=== PATIENT | female | born 1965 | race African-American/Black ===

== ENCOUNTER 2016-04-21 07:55 | Observation (INO) | payer SELFPAY ==
[2016-04-21 08:01] VITALS: BP 152/83; PULSE 72; RESP 15; TEMP 98.6; O2SAT 99
--- NOTE | 2016-04-21 08:23 | PD ---
HPI Chief Complaint: Chest Pain Time Seen by Provider: 08:15 Travel History International Travel<30 days: No Contact w/Intl Traveler<30days: No Traveled to known affect area: No History of Present Illness HPI The patient was seen and examined in the presence of the nurse. This patient complains of chest pressure. Started 11 PM last night, it's been constant for 9 hours since that time. Feels like a pressure and heaviness. Location is upper central sternum. She has no diagnosed cardiac problems. She does have anxiety issues. Severity of symptoms is moderate. No alleviating factors. Symptoms are nonexertional PFSH Social History Alcohol Use: No Tobacco Use: No Substance Use: No Allergies-Medications (Allergen,Severity, Reaction): Coded Allergies: No Known Allergies (Unverified , 04/21/16) Reported Meds & Prescriptions Reported Meds & Active Scripts Active Reported Trazodone (Trazodone HCl) 100 Mg Tab 100 Mg PO HS Linzess (Linaclotide) 290 Mcg Cap 290 Mcg PO DAILY Ativan (Lorazepam) 1 Mg Tab 1 Mg PO TID PRN Topamax (Topiramate) 100 Mg Tab 100 Mg PO BID Ambien (Zolpidem Tartrate) 10 Mg Tab 10 Mg PO HS PRN Review of Systems General / Constitutional: No: Fever Eyes: No: Visual changes HENT: No: Headaches Cardiovascular: Positive: Chest Pain or Discomfort Respiratory: No: Shortness of Breath Gastrointestinal: No: Abdominal Pain Genitourinary: No: Dysuria Musculoskeletal: No: Pain Skin: No Rash Neurologic: No: Weakness Psychiatric: Positive: Anxiety, No: Depression Endocrine: No: Polydipsia Hematologic/Lymphatic: No: Easy Bruising Physical Exam Narrative GENERAL: Well-nourished, well-developed patient in no apparent distress. SKIN: Warm and dry. HEAD: Atraumatic. Normocephalic. EYES: Pupils equal and round. No scleral icterus. No injection or drainage. ENT: No nasal bleeding or discharge. Mucous membranes pink and moist. NECK: Trachea midline. No JVD. CARDIOVASCULAR: Regular rate and rhythm. No murmur appreciated. RESPIRATORY: No accessory muscle use. Clear to auscultation. Breath sounds equal bilaterally. GASTROINTESTINAL: Abdomen soft, non-tender, nondistended. Hepatic and splenic margins not palpable. MUSCULOSKELETAL: No obvious deformities. No clubbing. No cyanosis. No edema. NEUROLOGICAL: Awake and alert. No obvious cranial nerve deficits. Motor grossly within normal limits. Normal speech. PSYCHIATRIC: Appropriate mood and affect; insight and judgment normal. Data Data Last Documented VS Vital Signs Date Time Temp Pulse Resp B/P Pulse Ox O2 Delivery O2 Flow Rate FiO2 04/21/16 08:01 98.6 72 15 152/83 99 Orders Electrocardiogram (04/21/16 ) Basic Metabolic Panel (Bmp) (04/21/16 08:19) Ckmb (Isoenzyme) Profile (04/21/16 08:19) Complete Blood Count With Diff (04/21/16 08:19) Prothrombin Time / Inr (Pt) (04/21/16 08:19) Act Partial Throm Time (Ptt) (04/21/16 08:19) Troponin I (04/21/16 08:19) Chest, Single Ap (04/21/16 08:19) Ecg Monitoring (04/21/16 08:19) Iv Access Insert/Monitor (04/21/16 08:19) Oximetry (04/21/16 08:19) Aspirin (Aspirin) (04/21/16 08:30) Sodium Chloride 0.9% Flush (Ns Flush) (04/21/16 08:30) CKMB (04/21/16 08:00) CKMB% (04/21/16 08:00) Labs Laboratory Tests Test 04/21/16 08:00 White Blood Count 6.2 TH/MM3 Red Blood Count 4.16 MIL/MM3 Hemoglobin 12.5 GM/DL Hematocrit 36.1 % Mean Corpuscular Volume 87.0 FL Mean Corpuscular Hemoglobin 30.0 PG Mean Corpuscular Hemoglobin 34.6 % Concent Red Cell Distribution Width 12.6 % Platelet Count 328 TH/MM3 Mean Platelet Volume 6.7 FL Neutrophils (%) (Auto) 55.0 % Lymphocytes (%) (Auto) 28.6 % Monocytes (%) (Auto) 6.8 % Eosinophils (%) (Auto) 8.9 % Basophils (%) (Auto) 0.7 % Neutrophils # (Auto) 3.4 TH/MM3 Lymphocytes # (Auto) 1.8 TH/MM3 Monocytes # (Auto) 0.4 TH/MM3 Eosinophils # (Auto) 0.5 TH/MM3 Basophils # (Auto) 0.0 TH/MM3 CBC Comment DIFF FINAL Differential Comment Prothrombin Time 10.3 SEC Prothromb Time International 0.9 RATIO Ratio Activated Partial 25.2 SEC Thromboplast Time Sodium Level 142 MEQ/L Potassium Level 3.8 MEQ/L Chloride Level 108 MEQ/L Carbon Dioxide Level 28.4 MEQ/L Anion Gap 6 MEQ/L Blood Urea Nitrogen 16 MG/DL Creatinine 0.87 MG/DL Estimat Glomerular Filtration 69 ML/MIN Rate Random Glucose 110 MG/DL Calcium Level 8.8 MG/DL Total Creatine Kinase 148 U/L Creatine Kinase MB 1.6 NG/ML Troponin I LESS THAN 0.02 NG/ML MDM Medical Decision Making Medical Screen Exam Complete: Yes Emergency Medical Condition: Yes Medical Record Reviewed: Yes Differential Diagnosis Differential diagnosis includes SD, angina, pericarditis, pleurisy, GERD, anxiety. Narrative Course I have reviewed the patient's electronic medical record. No prior EKGs to look at. She's never been here before IV placed I reviewed the EKG which shows sinus rhythm without ST elevation. There are some nonspecific ST-T wave changes and no priors to compare I reviewed the chest x-ray which is normal Extended cardiac monitoring shows sinus rhythm without ectopy CBC is normal Metabolic profile is normal CK is normal Troponin is normal Coagulation studies are normal I gave her an aspirin Workup here is negative. Patient does have a vague family history of cardiac disease. Recommending 23 hour observation on telemetry in the chest pain center to rule out cardiac cause of her symptoms. She is in agreement. Diagnosis Primary Impression: Chest pain in adult Admitting Information Admitting Physician Requests: Observation Arjun Chapman MD Apr 21, 2016 08:23
[2016-04-21] MEDS ORDERED: SODIUM CHLORIDE 0.9% FLUSH 5 ML FLUSH IVF PRN (08:30)
[2016-04-21] MEDS ORDERED: ASPIRIN 325 MG TAB PO ONE (08:30)
[2016-04-21 08:36] LABS: AUTOMATED NEUTROPHIL # 3.4 TH/MM3 (1.8-7.7); BASOPHIL % 0.7 % (0.0-2.0); EOSINOPHIL # 0.5 TH/MM3 (0-0.4); EOSINOPHIL % 8.9 % (0.0-4.0); HEMATOCRIT 36.1 % (35.0-46.0); HEMO FLAGS DIFF FINAL; LYMPH % 28.6 % (9.0-44.0); LYMPHOCYTE # 1.8 TH/MM3 (1.0-4.8); MEAN CORPUSCULAR HGB CONC 34.6 % (32.0-36.0); MONO % 6.8 % (0.0-8.0); PLATELET COUNT 328 TH/MM3 (150-450); RED BLOOD COUNT 4.16 MIL/MM3 (4.00-5.30); RED CELL DISTRIBUTION WIDTH 12.6 % (11.6-17.2); WHITE BLOOD COUNT 6.2 TH/MM3 (4.0-11.0)
[2016-04-21] MEDS ORDERED: LORA-474 PO (08:40)
[2016-04-21] MEDS ORDERED: TOPA100T11 PO (08:40)
[2016-04-21] MEDS ORDERED: AMBI10TA PO (08:40)
[2016-04-21] MEDS ORDERED: LINA290C PO (08:42)
[2016-04-21] MEDS ORDERED: TRAZ100T4 PO (08:42)
[2016-04-21 08:45] LABS: APTT (PATIENT) 25.2 SEC (24.3-30.1); INTERNATIONAL NORMALIZED RATIO 0.9 RATIO; PROTHROMBIN TIME - PATIENT 10.3 SEC (9.8-11.6)
[2016-04-21 08:52] LABS: ANION GAP 6 MEQ/L (5-15); BICARBONATE 28.4 MEQ/L (21.0-32.0); BLOOD UREA NITROGEN 16 MG/DL (7-18); CHLORIDE 108 MEQ/L (98-107); GLOMERULAR FILTRATION RATE 69 ML/MIN (>89); POTASSIUM 3.8 MEQ/L (3.5-5.1); SODIUM (NA) 142 MEQ/L (136-145)
[2016-04-21 08:56] LABS: CREATINE KINASE 148 U/L (26-192)
--- NOTE | 2016-04-21 09:04 | RADRPT ---
EXAM DATE/TIME: 04/21/2016 08:18 [facility] COMPARISON: No previous studies available for comparison. INDICATIONS : Sudden onset of chest pain MEDICAL HISTORY : None. SURGICAL HISTORY : None. ENCOUNTER: Initial ACUITY: 1 day PAIN SCORE: 7/10 LOCATION: Bilateral chest FINDINGS: A single view of the chest demonstrates the lungs to be symmetrically aerated without evidence of mas s, infiltrate or effusion. The cardiomediastinal contours are unremarkable. Osseous structures are intact. CONCLUSION: Normal examination for a patient of this age. Anton Zavaleta MD on April 21, 2016 at 9:01 Board Certified Radiologist. This report was verified electronically.
[2016-04-21 09:09] LABS: CKMB 1.6 NG/ML (0.5-3.6)
[2016-04-21] MEDS ORDERED: ACETAMINOPHEN 500 MG CPLT PO PRN (10:30)
[2016-04-21] MEDS ORDERED: NITROGLYCERIN 0.4 MG SL 25 TABS/BTL SL PRN (10:30)
[2016-04-21] MEDS ORDERED: ONDANSETRON HCL 4 MG/2 ML VIAL IV PRN (10:30)
[2016-04-21] MEDS ORDERED: KETOROLAC TROMETHAMINE 30 MG/ML (IVP) VIAL IV PUSH ONE (11:15)
[2016-04-21 11:30] VITALS: BP 126/76; PULSE 66; RESP 15; O2SAT 100
[2016-04-21] MEDS ORDERED: LORazepam 1 MG TAB PO ONE (11:30)
--- NOTE | 2016-04-21 12:22 | MH ---
cc: SELVIN GIPSON MD DATE OF ADMISSION: 04/21/2016 DATE OF : 1965 CHIEF COMPLAINT Chest pressure. HISTORY OF PRESENT ILLNESS This is a 51-year-old patient who presented to the emergency room for further evaluation with onset of chest pressure at approximately 9:00 p.m. yesterday, location in her retrosternal area, severity 7/10. Duration has been constant. There is no associated symptoms of shortness of breath, nausea or diaphoresis. No known precipitating factors or relieving factors. Breathing makes pain worse and there is radiation to her left scapula area. PAST MEDICAL HISTORY 1. Bipolar. 2. Irritable bowel syndrome. PAST SURGICAL HISTORY 1. Hysterectomy. 2. x1. FAMILY HISTORY Mother had "heart problems in her mid 40s." She is unsure exactly what those problems are. Sister is alive and well with no cardiac problems. Unknown father history. SOCIAL HISTORY She is a lifelong nonsmoker. Drinks alcohol rarely. No illegal drug use. Recently moved here 2 months ago from [place]. Her and her built a house. No known hypertension, diabetes, hyperlipidemia. She is active and works at [employer]. She saw her primary care provider before leaving [place] and was given a "[employer] bill of [employer]." PAST CARDIAC TESTING She had a treadmill study 2 years ago and also a chemical stress test many years ago, both unremarkable. ALLERGIES She had no allergies to medication. MEDICATIONS Current medications include: 1. Topamax 100 mg b.i.d. 2. Trazodone 100 mg q.h.s. 3. Ambien 10 mg q.h.s. p.r.n. for insomnia. 4. Ativan 1 mg t.i.d. p.r.n. for anxiety. 5. Linzess 290 mcg daily. REVIEW OF SYSTEMS GENERAL: No recent illness, fevers, chills, weakness, malaise, fatigue, change in appetite. HEENT: No visual changes, nasal congestion. Reports "migraine headache" yesterday while at work. Headache has since subsided. CARDIOVASCULAR: Continues to have chest pressure as stated above, made worse with breathing. No palpitations, dizziness, intermittent leg pain. RESPIRATORY: No shortness of breath, recent upper respiratory infection, cough or wheeze. GASTROINTESTINAL: Reports chronic constipation. This is unchanged and she is on medication for her irritable bowel syndrome. No pain, distension, blood in the stool or dark stool. GENITOURINARY: No dysuria or frequency. Reports urinary urgency has been going on for sometime. No hematuria. EXTREMITIES: No lower leg edema or pain. MUSCULOSKELETAL: No discomfort, change in range of motion. NEUROLOGIC: No difficulty with balance, motor or sensory deficit, loss of consciousness, dizziness. SKIN: No rashes. No concerning lesions. PHYSICAL EXAMINATION VITAL SIGNS: Temperature 98.6, pulse 72, respiratory rate 15, blood pressure 152/83. 99% on room air. GENERAL: An alert, well-nourished, well-developed, in no acute distress, pleasant female. HEAD: Normocephalic, atraumatic. EYES: Sclerae clear. Pupils are equal and round. NECK: Supple. Trachea is midline. CARDIOVASCULAR: Regular rate and rhythm without murmur, rub or gallop. No JVD. S1, S2. No S3. No S4. PULMONARY: Clear lungs throughout bilaterally. She has a symmetrical chest rise. No crackles, wheeze or rhonchi. She is non-labored. ABDOMEN: Soft, nontender, nondistended. Positive bowel tones. BACK: No costovertebral angle tenderness. No scoliosis. EXTREMITIES: Pulses +2 x4. There is pitting dependent edema +1 in her ankles. MUSCULOSKELETAL: Normal tone x4. She is tender in her chest wall upon palpation. No obvious deformities. NEUROLOGIC: Cranial nerves II through XII grossly intact. Motor strength 5/5. PSYCHIATRIC: She is alert and oriented x3, has a pleasant affect, appropriate mood, insight and judgment, mildly anxious. SKIN: Normal turgor, normal texture. Warm and dry. Brisk capillary refill. No rashes. LABORATORY CBC is unremarkable. Chemistry is also unremarkable. First set of cardiac enzymes are negative. Coagulation is unremarkable. IMAGING Chest x-ray read by the radiologist has an impression of a normal exam for patient of this age. EKG The first EKG shows a normal sinus rhythm with nonspecific T-wave abnormalities. ASSESSMENT AND PLAN 1. Chest pain: The patient has been admitted to the chest pain center. She will undergo three sets of EKGs and cardiac enzymes. She will be seen and evaluated Dr. Selvin Gipson. Discussed with the patient the possibility of having an exercise stress test after assessment by Dr. Gipson. She is agreeable to this plan of care. 2. Anxiety: Lorazepam 1 mg x1 dose. 3. Musculoskeletal pain: Toradol 30 mg IV x1 dose. Dictated by: DAMIAN Casiano Selvin Gipson M.D. BAB/FAY /11:22 AM /12:18 PM
[2016-04-21 12:45] LABS: CREATINE KINASE 141 U/L (26-192)
[2016-04-21 12:58] LABS: CKMB 1.2 NG/ML (0.5-3.6)
[2016-04-21] MEDS: TOPIRAMATE 100 MG TAB PO SCH ×2 (13:38→20:23)
--- NOTE | 2016-04-21 14:43 | EKG ---
Date Performed: 04/21/2016 Time Performed: 08:06:38 PTAGE: 51 years EKG: Sinus rhythm WITH SINUS ARRHYTHMIA NONSPECIFIC T-WAVE ABNORMALITY BORDERLINE ECG NO PREVIOUS TRACING Since previous tracing, no significant change noted DOCTOR: Amanda Jacinto Interpretating Date/Time 04/21/2016 14:38:18
--- NOTE | 2016-04-21 14:43 | EKG ---
Date Performed: 04/21/2016 Time Performed: 11:19:45 PTAGE: 51 years EKG: Sinus rhythm NONSPECIFIC T-WAVE ABNORMALITY BORDERLINE ECG PREVIOUS TRACING : 04/21/2016 08.06 Since previous tracing, no significant change noted DOCTOR: Amanda Jacinto Interpretating Date/Time 04/21/2016 14:38:27
[2016-04-21 15:36] LABS: CREATINE KINASE 133 U/L (26-192)
[2016-04-21 15:37] VITALS: BP 122/72; PULSE 63; RESP 18; TEMP 97.5; O2SAT 100
[2016-04-21 15:50] LABS: CKMB 1.1 NG/ML (0.5-3.6)
[2016-04-21] MEDS ORDERED: NAPROXEN 250 MG TAB PO PRN (17:15)
[2016-04-21] MEDS ORDERED: NON-FORMULARY DRUG (Linaclotide (Linzess) 290 MCG) PO SCH (17:15)
[2016-04-21 19:00] VITALS: PULSE 75
[2016-04-21] MEDS ORDERED: ZOLPIDEM TARTRATE 10 MG TAB PO PRN (20:00)
[2016-04-21] MEDS: SODIUM CHLORIDE 0.9% FLUSH 5 ML FLUSH IVF SCH (20:23)
[2016-04-21 20:55] VITALS: BP 126/74; PULSE 84; RESP 21; TEMP 98.2; O2SAT 97
[2016-04-21] MEDS ORDERED: traZODone HCL 100 MG TAB PO SCH (21:00)
[2016-04-21 23:26] VITALS: PULSE 73
[2016-04-22 00:48] VITALS: BP 104/56; PULSE 82; RESP 21; TEMP 97.8; O2SAT 99
[2016-04-22 03:06] VITALS: PULSE 85
[2016-04-22 03:30] VITALS: BP 121/74; PULSE 87; RESP 18; TEMP 98; O2SAT 98
[2016-04-22 08:00] VITALS: BP 96/53; PULSE 70; PULSE 81; RESP 18; TEMP 98.6; O2SAT 96
[2016-04-22] MEDS: TOPIRAMATE 100 MG TAB PO SCH (08:47)
[2016-04-22] MEDS: SODIUM CHLORIDE 0.9% FLUSH 5 ML FLUSH IVF SCH (08:47)
[2016-04-22] MEDS ORDERED: ASPIRIN 325 MG TAB PO SCH (09:00)
[2016-04-22] MEDS ORDERED: LINACLOTIDE 290 MG PO SCH (09:00)
--- NOTE | 2016-04-22 11:08 | EKG ---
Date Performed: 04/21/2016 Time Performed: 14:45:59 PTAGE: 51 years EKG: Sinus rhythm NONSPECIFIC T-WAVE ABNORMALITY BORDERLINE ECG PREVIOUS TRACING : 04/21/2016 11.19 DOCTOR: Aakash Jackson Interpretating Date/Time 04/22/2016 11:08:17
--- NOTE | 2016-04-22 11:21 | TR ---
Date Performed: 04/21/2016 Time Performed: 16:25:23 DOCTOR: Aakash Jackson DRUG LIST: CLINICAL HISTORY: REASON FOR TEST: Chest pain REASON FOR ENDING: OBSERVATION: CONCLUSION: Andrey protocol completed. Stopped sec to reaching target heart rate and leg fatigue. Maximum PN=733 Target HR Achieved=88.0% Total Exercise Time=4:02 Max bp 120/80. No reprod chest disc omfort, no sob. Fair exercise tolerance. Occassional PVC during exam. T wave changes at baseline. Du ring peak exercise developed mostly flattened ST-depression leads II, III, AVF, V4-V6 which is consis tent with ischemic changes. Normal bp response. Recovery quick and unremarkable. COMMENTS: CONCLUSION: Exercise stress test is borderline posative for ischemic changes. Nuclear exercise stress test will be obtained.
--- NOTE | 2016-04-22 11:30 | TR ---
Date Performed: 04/22/2016 Time Performed: 10:08:17 DOCTOR: Aakash Jackson DRUG LIST: CLINICAL HISTORY: REASON FOR TEST: REASON FOR ENDING: OBSERVATION: CONCLUSION: NUC ETT. AUSTYN PROTOCOL. NO CP OR SOB. POOR EXERCISE TOLERANCE. NORMAL BLOOD PRESSUR E RESPONSE TO EXERCISE. ECG TRACINGS WERE NEGATIVE FOR ISCHEMIC CHANGES. RECOVERY WAS QUICK AND UNEVE NTFUL. Maximum UX=463 % Max HR Achieved=91.0% Maximum EL=058/78 Total Exercise Time=2:59 COMMENTS: CONCLUSION: ECG portion nuclear exercise stress test negative for ischemic changes. Nu clear imaging and interpretation are pending.
--- NOTE | 2016-04-22 11:57 | RADRPT ---
EXAM DATE/TIME: 04/22/2016 09:19 [facility] COMPARISON: No previous studies available for comparison. INDICATIONS : Retrosternal chest pressure radiating to left scapula area, worse upon breathing. Angina DOSE: 27.8 mCi Tc99m Myoview at stress 8.6 mCi Tc99m Myoview at rest REST HEART RATE: 90 BPM TARGET HEART RATE: 145 BPM MAX HEART RATE: 155 BPM REST BLOOD PRESSURE: 109/65 mmHg MAX BLOOD PRESSURE: 125/78 mmHg EJECTION FRACTION: 55% MEDICAL HISTORY : None SURGICAL HISTORY : Hysterectomy. section. ENCOUNTER: Initial ACUITY: 2 days PAIN SCALE: 7/10 LOCATION: Retrosternal chest TECHNIQUE: The patient underwent upright treadmill exercise in the chest pain center. Continuous ECG tracing wa s monitored during stress. Gated SPECT imaging was performed after stress, and conventional SPECT im aging was performed at rest. The examination was performed on a SPECT/CT scanner, both attenuation-c orrected and non-corrected datasets were reviewed. FINDINGS: DISTRIBUTION: The maximum perfused segment at stress is in the anterior lateral wall. PERFUSION STUDY: The pattern of perfusion at stress is within normal limits. GATED STUDY: There is intact wall motion and thickening without hypokinetic or dyskinetic segments. CONCLUSION: Negative for stress-induced ischemia. RISK CATEGORY: Low (<1% Annual Mortality Rate) Dino Tang MD FACR on April 22, 2016 at 11:54 Board Certified Radiologist. This report was verified electronically.
--- NOTE | 2016-04-22 12:12 | HHI.DCPOC ---
Discharge Care Plan Diagnosis: (1) Chest pain Goals to Promote Your Health * To prevent worsening of your condition and complications * To maintain your health at the optimal level Directions to Meet Your Goals Take your medications as prescribed Follow your dietary instruction Follow activity as directed Keep your appointments as scheduled Take your immunizations and boosters as scheduled If your symptoms worsen call your PCP, if no PCP go to Urgent Care Center or Emergency Room Smoking is Dangerous to Your Health. Avoid second hand smoke Call the 24-hour hour crisis hotline for domestic abuse at Jonathon Hollis Apr 22, 2016 12:12
== END 2016-04-22 14:15 | disposition home or self-care (01) ==
LOC: NEPC 07:55 → NEDA 10:00 → NEPFCDU 15:28
PROVIDERS: ADMIT Internal Medicine Interventional Cardiology; ATTEND Internal Medicine Interventional Cardiology
DX: R07.89 Other chest pain (principal); M79.1 Myalgia; F41.9 Anxiety disorder, unspecified; R94.31 Abnormal electrocardiogram [ECG] [EKG]; K58.9 Irritable bowel syndrome, unspecified
CPT/HCPCS: 71010; 78452; 80048; 82550; 82552; 84484; 85025; 85610; 85730; 93005; 93017; 99285; A9502; G0378; J1885

== ENCOUNTER 2016-05-09 15:31 | Emergency (ER) | payer SELFPAY ==
[~2016-05-09] VITALS: Ht 167.6 cm; Wt 80.0 kg
[~2016-05-09 15:31] MED LIST: AMBI10TA PO; LINA290C PO; LORA-474 PO; TOPA100T11 PO; TRAZ100T4 PO
[2016-05-09 15:35] VITALS: BP 114/76; PULSE 85; RESP 12; TEMP 97.9; O2SAT 97
--- NOTE | 2016-05-09 16:37 | PD ---
HPI Chief Complaint: Injury Time Seen by Provider: 16:37 Travel History International Travel<30 days: No Contact w/Intl Traveler<30days: No Traveled to known affect area: No History of Present Illness HPI 51-year-old female presents to the emergency Department with complaint of right foot pain 3 weeks. Denies known injury. Denies paresthesias, loss of sensation, decreased range of motion, decreased strength to the affected extremity. Has been ambulatory on the foot. Pain is worse with evaluation. Pain is constant. Location is top of right foot. Aching sensation in that when she walks on it is a stabbing sensation. Has tried multiple over-the- counter medications with no relief of pain. Has been using an ankle compression bandage with some relief of pain. Denies fever, chills, nausea, vomiting. Denies allergies. Denies significant past medical history. No other modifying factors or associated signs and symptoms. PFSH Past Medical History Bipolar Disorder: Yes Heart Rhythm Problems: No Cardiac Catheterization: No Cardiovascular Problems: No High Cholesterol: No Congestive Heart Failure: No Diabetes: No Diminished Hearing: No Past Surgical History Coronary Artery Bypass Graft: No Gynecologic Surgery: Yes (HYSTERECTOMY AND ONE ) Hysterectomy: Yes Social History Alcohol Use: No Tobacco Use: No Substance Use: No Allergies-Medications (Allergen,Severity, Reaction): Coded Allergies: No Known Allergies (Unverified , 05/09/16) Reported Meds & Prescriptions Reported Meds & Active Scripts Active Ibuprofen 800 Mg Tab 800 Mg PO Q6HR PRN Reported Trazodone (Trazodone HCl) 100 Mg Tab 100 Mg PO HS Linzess (Linaclotide) 290 Mcg Cap 290 Mcg PO DAILY Ativan (Lorazepam) 1 Mg Tab 1 Mg PO TID PRN Topamax (Topiramate) 100 Mg Tab 100 Mg PO BID Ambien (Zolpidem Tartrate) 10 Mg Tab 10 Mg PO HS PRN Review of Systems Except as stated in HPI: all other systems reviewed are Neg Physical Exam Narrative GENERAL: Well-nourished, well-developed patient, in no acute distress SKIN: Warm and dry. HEAD: Atraumatic. Normocephalic. EYES: Pupils equal and round. No scleral icterus. No injection or drainage. ENT: Mucosa pink and moist. Airway patent. NECK: Trachea midline. CARDIOVASCULAR: Regular rate. RESPIRATORY: No accessory muscle use. GASTROINTESTINAL: Flat. MUSCULOSKELETAL: Right foot is nonedematous and nonerythematous; with point tenderness to the midfoot zone; no obvious deformities. Right lower extremity is supple and non-tense with 2+ pedal pulses and sensory intact and without erythema or edema. With full range of motion and strength. Patient ambulatory with a limp. Toes pink and warm and with less than 3 second cap refill. No obvious deformities. No clubbing. No cyanosis. No edema. NEUROLOGICAL: Awake and alert. Oriented 3. No obvious cranial nerve deficits. Motor grossly within normal limits. Normal speech. PSYCHIATRIC: Appropriate mood and affect; insight and judgment normal. Data Data Last Documented VS Vital Signs Date Time Temp Pulse Resp B/P Pulse Ox O2 Delivery O2 Flow Rate FiO2 05/09/16 15:35 97.9 85 12 114/76 97 Room Air Orders Foot, Complete ([id number]) (05/09/16 16:37) [facility] Medical Decision Making Medical Screen Exam Complete: Yes Emergency Medical Condition: Yes Medical Record Reviewed: Yes Differential Diagnosis Heel spur, plantar fasciitis, foot sprain, nonspecific foot pain Narrative Course 51-year-old female with right foot pain. No known injury. Tenderness to palpation of the midfoot zone. I offered the patient nonnarcotic for pain and she declined. Right foot x-ray ordered. 1730: Right foot x-ray concludes calcaneal spurs. Patient provided crutches for support. Ibuprofen prescribed for home. Instructed patient to follow up with podiatry and she verbalizes understanding and agreement. Patient is medically cleared and stable for discharge. Discussed reasons to return to the emergency department. Instructed patient to follow up with primary care provider. Patient agrees with treatment plan. The patients vital signs are stable and the patient is stable for outpatient follow-up and treatment. Patient discharged home, stable and in no acute distress. Diagnosis Primary Impression: Right foot pain Additional Impression: Calcaneal spur, right foot Referrals: [employer] Primary Care Physician Patient Instructions: Crutch Instructions (ED), General Instructions, Heel Spur (ED) Departure Forms: Tests/Procedures, Work Release Enter return to work date: May 12, 2016 Additional Instructions: Tylenol or ibuprofen instructed as needed for pain and inflammation Rest, ice, compress, and elevate extremity to decrease pain and inflammation Erasmo bandage for compression and support Crutches for support Avoid aggravating activity; increase activity as tolerated Follow-up with primary care provider Follow-up with podiatry as needed Return to the emergency department immediately with worsening symptoms Med/Other Pt SpecificInfo: Prescription(s) given Scripts Ibuprofen 800 Mg Iiv482 Mg PO Q6HR PRN (PAIN) #30 TAB Ref 0 Prov:Tran Delacruz 05/09/16 Disposition: 01 DISCHARGE HOME Condition: Stable Tran Delacruz May 09, 2016 16:37
[2016-05-09] MEDS ORDERED: IBUP800T23 PO (16:47)
--- NOTE | 2016-05-09 17:20 | RADRPT ---
EXAM DATE/TIME: 05/09/2016 16:48 [facility] COMPARISON: No previous studies available for comparison. INDICATIONS : Right foot pain with no known injury. MEDICAL HISTORY : None. SURGICAL HISTORY : None. ENCOUNTER: Initial ACUITY: 3 weeks PAIN SCORE: 8/10 LOCATION: Right dorsal foot. FINDINGS: Three view examination of the right foot demonstrates no soft tissue swelling, dislocation, or fractu re. The tarsal bones appear intact. The interphalangeal and metatarsophalangeal joints are intact. The calcaneus is intact. Bony mineralization is normal. Calcaneal spurs at the insertion of planta r aponeurosis and Achilles tendon CONCLUSION: Calcaneal spurs. Otherwise negative Kam Ledezma MD on May 09, 2016 at 17:18 Board Certified Radiologist. This report was verified electronically.
== END 2016-05-09 18:22 | disposition home or self-care (01) ==
LOC: NEPB 15:31
DX: M79.671 Pain in right foot (principal); M77.31 Calcaneal spur, right foot; Z86.59 Personal history of other mental and behavioral disorders
CPT/HCPCS: 73630; 99283; E0113